=== PATIENT | female | born 1950 | race Caucasian/White ===

== ENCOUNTER 2024-10-09 11:31 | Emergency (ER) | payer MEDICARE, SELFPAY ==
[2024-10-09 11:37] VITALS: BP 120/63
--- NOTE | 2024-10-09 13:52 | ED.GENMED ---
History of Present Illness
General
Chief Complaint: Fall
Source: patient and family
Exam Limitations: none
Time Seen by Provider: 10/09/24 13:15
Nursing documentation reviewed up to this point in time: agreed with
History of Present Illness
History of Present Illness:
74-year-old female presenting to the emergency department today after mechanical fall hitting her head on the ground does take Xarelto did not lose consciousness able to stand up at the scene. Denies additional concerns otherwise. Able to ambulate
at the scene.
Review of Systems
Review of Systems
Allergies reviewed?: Yes
All Other Systems: ROS reviewed and negative except as documented in HPI and ROS
Phy Exam
Physical Exam
Physical Exam:
GENERAL: Alert , in no apparent distress
EYE: pupils equal and reactive
NECK: Supple, no significant adenopathy.
ENT: Small cut to the right lateral eyebrow region. o/p clr, mmm.
CARDIAC: Regular rate and rhythm .
LUNGS: Clear breath sounds bilaterally, no acute respiratory distress, no wheezes/rales/rhonchi
ABDOMEN: Soft, without focal tenderness, no r/g, no cvat
NEUROLOGICAL: Alert and oriented, no focal neuro deficits 5-5 upper and lower extremity strength normal sensation when palpating bilaterally normal finger-nose and sjor-[id number]-[id number] no pronator drift
SKIN: Warm and dry, skin intact.
MUSCULOSKELETAL: No edema, well perfused.
PSYCH: Normal and appropriate interaction.
Course
Orders/Labs/Results
Orders:
Orders
10/09/24 11:[address] [CT Head W/o Iv Contrast] Urgent
Comment:
Reason For Exam: fall with head strike, on thinners
Vital Signs
Initial and Last Documented VS:
Initial Vital Signs
Temp Pulse Resp BP Pulse Ox
98.1 F 69 18 120/63 99
10/09/24 11:37 10/09/24 11:37 10/09/24 11:37 10/09/24 11:37 10/09/24 11:37
Last Documented Vital Signs
Temp Pulse Resp BP Pulse Ox
98.1 F 69 18 120/63 99
10/09/24 11:37 10/09/24 11:37 10/09/24 11:37 10/09/24 11:37 10/09/24 11:37
Procedures
Laceration Closure
Right Lateral Eye brow:
Status of Wound: clean
Size of Wound in cm: 1
Description of Wound Edges: sharp
Preparation: cleaned with saline
Anesthesia: 1% Lidocaine with epi
Revision/Debridement: routine- no revision
Wound exploration: explored to base- no FB
Type of Closure: Dermabond-skin glue
MDM/Problems Addressed
MDM/Problems Addressed:
74-year-old female presenting to the emergency department today with concerns of fall hitting the right side of her head. Did not lose consciousness but is on Xarelto. Head CT without emergent findings. Patient well-appearing no distress. Normal
neurologic evaluation. No evidence of additional injury. No neck pain. Small laceration to the right eyebrow region was closed with Dermabond otherwise stable for discharge. Return precautions given.
*Critical Care Note
Total Time (30-74mins, 75-104mins- exclusive of procedures): Not Applicable
ED Attending Note
-
Portions of this chart may have been created with voice recognition software.� Occasional wrong word or��sound alike� substitutions may have occurred due to the inherent limitations of voice recognition software.
Discharge Plan
Departure
Patient Disposition: Home (Routine Discharge)
Date of Disposition: 10/09/24
Time of Disposition: 14:09
Patient with high blood pressure during this ER visit?: No
Condition: Good
Covid-19: Not Applicable
Discharge Problem:
Fall, Eyebrow laceration
Instructions: Laceration Repair With Glue (DC)
Prescriptions:
No Action
terconazole 0.4 % Cream
1 applic VAGINAL PRN PRN (Reason: itching)
gabapentin 600 mg Tablet
600 mg PO HS
enalapril maleate 5 mg Tablet
5 mg PO BID
hydrochlorothiazide 50 mg Tablet
50 mg PO .QAM
esomeprazole magnesium 40 mg Capsule,Delayed Release(Dr/Ec)
40 mg PO DAILY
montelukast 10 mg Tablet
10 mg PO HS
gabapentin 100 mg Capsule
100 mg PO .SUPPER
metformin 500 mg Tablet Extended Release 24 Hr
1,000 mg PO BID
diltiazem HCl 120 mg Tablet Extended Release 24 Hr
120 mg PO DAILY
cyclosporine [Restasis] 0.05 % Dropperette
2 drp BOTH EYES BID
cholecalciferol (vitamin D3) 25 mcg (1,000 unit) Tablet
1,000 unit PO BID
Jardiance 10 mg Tablet
10 mg PO .QAM
biotin 5,000 mcg Tablet,Disintegrating
5,000 mcg PO QPM
Melatonin Advanced 10 MG
10 mg PO HS
cetirizine [Aller-Bladimir] 10 mg Tablet
5 mg PO BID
Rx Instructions:
1/2 tab in am 1/2 tab with dinner
diphenhydramine HCl [Benadryl] 25 mg Capsule
25 mg PO HS
ascorbate calcium (vitamin C) 500 mg Tablet
500 mg PO DAILY
gabapentin 100 mg Capsule
200 mg PO .AM
albuterol 90 mcg/actuation Aerosol
90 mcg INHALATION Q4-5H PRN (Reason: sob)
duloxetine 20 mg Capsule,Delayed Release(Dr/Ec)
20 mg PO DAILY
Joint Health
1 tab PO DAILY
mupirocin 2 % ointment
1 applic topical PRE OP
Patient Comments:
last dose was this am, 04/20
budesonide-formoterol [Symbicort] 160-4.5 mcg/actuation HFA aerosol inhaler
2 puff INHALATION BID PRN (Reason: sob)
cefadroxil 500 mg capsule
500 mg PO BID Qty: 14 0RF
Rx Instructions:
*Take w/ food
*Take w/ probiotic
*POST-OP USE
docusate sodium [Colace] 100 mg capsule
100 mg PO BID Qty: 1 0RF
oxycodone 5 mg tablet
5 - 10 mg PO Q6HPRN PRN (Reason: 1 tab moderate-2 tabs severe pain) Qty: 30 0RF
Rx Instructions:
Dx surgery
ongoing therapy
Post-op use
Saccharomyces boulardii [Florastor] 250 mg capsule
250 mg PO BID Qty: 1 0RF
acetaminophen [Tylenol Extra Strength] 500 mg tablet
1,000 mg PO QID Qty: 0 0RF
Xarelto 10 mg tablet
10 mg PO QPM Qty: 3 0RF
Rx Instructions:
take 10mg for 3 nights then resume full dose as previous
sennosides [Senokot] 8.6 mg tablet
17.2 mg PO BID Qty: 2 0RF
magnesium hydroxide [Milk of Magnesia] 400 mg/5 mL suspension
30 ml PO HS PRN (Reason: Constipation) Qty: 1 0RF
Referrals:
Melissa Welch MD [Family Provider] -
Activity Restrictions/Additional Instructions:
You came to the emergency department today with concerns of a fall. Here you had a normal head CT. Your small laceration that was closed with Dermabond. Please leave this in place over the next week until it falls off on its own. Return for any
worsening, new or concerning symptoms.
Interventions
Interventions:
*Risk Screen - Suicide Last Done: 10/09/24 11:41
*General Assessment Last Done: 10/09/24 11:41
*Neglect/Abuse Screening Last Done: 10/09/24 11:41
*ED COVID-19 Vaccine History Last Done: 10/09/24 11:41
Discharge Date and Time
Print Language: CITIZ[place]
== END 2024-10-09 14:19 | disposition home or self-care (01) ==
LOC: EMR 11:31
PROVIDERS: EMERGENCY PHYSICIAN Emergency Medicine; FAMILY PHYSICIAN Family Medicine
DX: S01.111A Laceration without foreign body of right eyelid and periocular area, initial encounter (principal); W18.30XA Fall on same level, unspecified, initial encounter; Z79.01 Long term (current) use of anticoagulants
CPT/HCPCS: 99284; 12011; 70450